=== PATIENT | female | born 1970 | race Hispanic/Latino ===

== ENCOUNTER 2016-07-25 08:40 | Outpatient (CLI) | payer OTHER ==
[2016-07-25 16:39] LABS: ALT (SGPT) 149 U/L (8-55); AST (SGOT) 69 U/L (5-34); Albumin 3.9 g/dL (3.5-5.0); Alkaline Phosphatase 66 U/L (40-150); Anion Gap 13 mmol/L (10-20); BUN (Urea Nitrogen) 12 mg/dL (7.0-18.7); Calc. Creatinine Clearance 0 mL/min (70-130); Calcium 8.5 mg/dL (7.8-10.44); Carbon Dioxide 26 mmol/L (22-29); Cardiac Risk 2.7 (Less than 4.5); Chloride 103 mmol/L (98-107); Cholesterol 172 mg/dl (< 200 Desired); Estimated GFR-MDRD 80; Globulin 2.4 g/dL (2.4-3.5); Glucose 96 mg/dL (70-105); HDL Cholesterol 64 mg/dL (>60 Neg Risk); LDL Cholesterol, Calculated 88 mg/dL; Potassium 4.4 mmol/L (3.5-5.1); Protein, Total 6.3 g/dL (6.0-8.3); Sodium 138 mmol/L (136-145); Triglycerides 101 mg/dL (Less than 150)
[2016-07-25 16:54] LABS: Thyroid Stimulating Hormone 2.2465 uIU/mL (0.35-4.94); Vitamin D, 25 Hydroxy 13.5 ng/ml (> 30.0)
[2016-07-25 17:03] LABS: #Basophils 0.1 thou/uL (0.0-0.2); #Eosinphils 0.3 thou/uL (0.0-0.7); #Lymphocytes 1.8 thou/uL (1.20-3.40); #Monocytes 0.4 thou/uL (0.11-0.59); #Neutrophils 4.6 thou/uL (1.40-6.50); %Basophils 1.3 % (0.0-1.0); %Eosinophils 3.6 % (0.0-10.0); %Lymphocytes 25.3 % (21.0-51.0); %Monocytes 5.8 % (0.0-10.0); Hemoglobin 12.2 g/dL (12.0-16.0); Mean Corpuscular Hemoglobin 32.8 pg (27.0-31.0); Mean Corpuscular Volume 96.4 fl (81.0-99.0); Mean Platelet Volume 7.4 fL (7.4-10.4); Platelet Count 216 thou/uL (130-400); Red Blood Cell (RBC) Count 3.71 mill/uL (4.20-5.40); White Blood Cell (WBC) Count 7.2 thou/uL (4.8-10.8)
[2016-07-25 17:35] LABS: Hemoglobin A1c 5.3 % (4.0-6.0)
== END 2016-07-25 08:41 | disposition home or self-care (01) ==
LOC: LABLEX 08:40
PROVIDERS: ATTEND Family Medicine
DX: E66.01 Morbid (severe) obesity due to excess calories (principal); M79.601 Pain in right arm; R20.2 Paresthesia of skin; R60.9 Edema, unspecified
CPT/HCPCS: 80053; 80061; 82306; 83036; 84443; 85025